=== PATIENT | female | born 1990 ===

== ENCOUNTER 2021-03-13 14:01 | Emergency (ER) | payer OTHER ==
[~2021-03-13] VITALS: Ht 175.3 cm; Wt 81.6 kg
[2021-03-13 14:03] VITALS: BP 109/48
== END 2021-03-13 15:51 | disposition home or self-care (01) ==
LOC: ER 14:01
DX: R51.9 Headache, unspecified (principal); G93.0 Cerebral cysts; W20.8XXA Other cause of strike by thrown, projected or falling object, initial encounter; Y93.89 Activity, other specified; Y92.89 Other specified places as the place of occurrence of the external cause; Y99.8 Other external cause status
CPT/HCPCS: 70450